=== PATIENT | female | born 1995 | race Caucasian/White ===

== ENCOUNTER 2017-08-26 19:23 | Emergency (ER) | payer BC ==
[~2017-08-26] VITALS: Ht 162.6 cm; Wt 49.9 kg
[2017-08-26] MEDS ORDERED: PANT40TA2 PO (21:27)
[2017-08-26] MEDS ORDERED: BC PILL (21:27)
[2017-08-26] MEDS ORDERED: METOCLOPRAMIDE HCL 10 MG/2 ML VIAL IV ONE (23:00)
[2017-08-26] MEDS ORDERED: IV NORMAL SALINE 1000 ML BAG IV ONE (23:00)
[2017-08-26] MEDS ORDERED: KETOROLAC TROMETHAMINE 15 MG INJ IV ONE (23:00)
[2017-08-26 23:20] LABS: BASOPHILS % (AUTO) 0.1 % (0.0-2.0); HEMATOCRIT 39.7 % (31.2-41.9); HEMOGLOBIN 13.5 g/dL (10.9-14.3); LYMPHOCYTES # (AUTO) 0.8 K/uL (20.0-40.0); LYMPHOCYTES % (AUTO) 10.8 % (20.5-74.5); MEAN CORPUSCULAR HEMOGLOBIN 29.5 uug (24.7-32.8); MEAN CORPUSCULAR HGB CONC 34 g/dL (32.3-35.6); MEAN CORPUSCULAR VOLUME 86.6 fL (75.5-95.3); MONOCYTES # (AUTO) 0.5 K/uL (2.0-10.0); MONOCYTES % (AUTO) 7.1 % (0-11); NEUTROPHILS # (AUTO) 6.3 K/uL (1.8-8.9); PLATELET COUNT (AUTO) 259 K/uL (179-408); RED BLOOD CELL COUNT(AUTO) 4.59 MIL/uL (3.63-4.92); WHITE BLOOD COUNT (AUTO) 7.7 K/uL (3.8-11.8)
[2017-08-26] MEDS ORDERED: METOCLOPRAMIDE HCL 10 MG/2 ML VIAL ONE (23:31)
[2017-08-26] MEDS ORDERED: KETOROLAC TROMETHAMINE 15 MG INJ ONE (23:31)
[2017-08-26 23:36] LABS: BILIRUBIN,DIRECT 0.1 mg/dL (0.0-0.2); BILIRUBIN,TOTAL 0.5 mg/dL (0.2-1.0); CREATININE 0.7 mg/dL (0.6-1.3); POTASSIUM 3.7 mmol/L (3.5-5.1); TOTAL PROTEIN, SERUM 8.5 g/dL (6.4-8.2)
[2017-08-27 00:39] LABS: *BILIRUBIN,URIN NEGATIVE (NEGATIVE); *BLOOD, URINE NEGATIVE (NEGATIVE); *CLARITY,URINE CLOUDY (CLEAR); *COLOR,URINE YELLOW (YELLOW); *KETONES,URINE 4+ (NEGATIVE); *PROTEIN,URINE 1+ (NEGATIVE); *UROBILINOGEN,URINE 0.2 E.U./dl (NORMAL); LEUKOCYTE ESTERASE ,URINE NEGATIVE (NEGATIVE); NITRITE, URINE NEGATIVE (NEGATIVE); PH,URINE 6.5 (5.0-8.0); UGLUCOSE NEGATIVE (NEGATIVE)
[2017-08-27 00:47] LABS: BACTERIA,URINE FEW /HPF (NONE SEEN); RBC,URINE 0-3 /HPF (0-3); SQUAMOUS EPITHELIAL CELL,UR MANY /HPF (NONE SEEN); WBC,URINE 0-3 /HPF (0-3)
[2017-08-27 00:48] LABS: MUCUS,URINE MODERATE /LPF (0-FEW); URINE AMORPHOUS URATE MANY /HPF
[2017-08-27] MEDS ORDERED: IV NORMAL SALINE 1000 ML BAG IV ONE (01:00)
--- NOTE | 2017-08-27 01:30 | NUR ---
patient states "I feel alot better now."
--- NOTE | 2017-08-27 01:39 | NUR ---
IV removed. Catheter intact and site benign. Pressure and 4x4 gauze applied to site. No bleeding noted.
--- NOTE | 2017-08-27 01:41 | NUR ---
Patient discharged to home in stable conditon with friends taking patient home. Written and verbal after care instructions given. Patient verbalizes understanding of instructions.
[2017-08-27 01:42] VITALS: BP 120/75
[2017-08-28] MEDS ORDERED: METO-295 PO (13:26)
== END 2017-08-27 01:42 | disposition home or self-care (01) ==
LOC: ER 19:25
DX: G43.A0 Cyclical vomiting, in migraine, not intractable (principal); E86.0 Dehydration
CPT/HCPCS: 36415; 70030-TC; 83690; 84703; 85025; 85730; A4663; J1885; J2765; J7030

== ENCOUNTER 2017-08-28 13:12 | Emergency (ER) | payer BC ==
[~2017-08-28] VITALS: Ht 162.6 cm; Wt 49.9 kg
[~2017-08-28 13:12] MED LIST: BC PILL; PANT40TA2 PO
[2017-08-28] MEDS ORDERED: METO-295 PO (13:26)
[2017-08-28] MEDS ORDERED: IV NORMAL SALINE 1000 ML BAG IV ONE (13:45)
[2017-08-28] MEDS ORDERED: ONDANSETRON 4 MG/2 ML VIAL IV ONE (13:45)
[2017-08-28] MEDS ORDERED: HYDROMORPHONE 1 MG/1 ML DISP.SYRIN IV ONE ×2 (13:45→16:00)
--- NOTE | 2017-08-28 13:47 | NUR ---
Pt initially denied abd pain but stated abd pain upon MSE.
[2017-08-28] MEDS ORDERED: ONDANSETRON 4 MG/2 ML VIAL ONE ×3 (13:57→16:27)
[2017-08-28] MEDS ORDERED: HYDROMORPHONE 4 MG/1 ML DISP.SYRIN ONE ×2 (13:58→16:21)
[2017-08-28] MEDS ORDERED: ONDANSETRON IV *ER 4 MG/2 ML VIAL IV ONE (16:00)
--- NOTE | 2017-08-28 16:45 | NUR ---
Patient discharged to home in stable conditon. Written and verbal after care instructions given. Patient verbalizes understanding of instructions.PT WALKS IN STEADY GAIT. PT CALLED FOR RIDE. PTNOT MALINI. PT SAYS FEELS BETTER. DENIES NAUSEA. PAIN DOWN TO TOLERABLE LEVLE.
[2017-08-28 16:54] VITALS: BP 111/79
== END 2017-08-28 16:57 | disposition home or self-care (01) ==
LOC: ER 13:15
DX: G43.A0 Cyclical vomiting, in migraine, not intractable (principal)
CPT/HCPCS: A4663; J1170; J2405; J7030

== ENCOUNTER 2017-09-01 10:45 | Inpatient (IN) | payer BC ==
[~2017-09-01] VITALS: Ht 162.6 cm; Wt 54.4 kg
[~2017-09-01 10:45] MED LIST changes: +METO-295 PO
--- NOTE | 2017-09-01 10:45 | NUR ---
Patient had one emesis of clear gastric contents. Comfort and safety measures initiated, pending available ER bed at this time.
[2017-09-01] MEDS ORDERED: IV NORMAL SALINE 500 ML BAG IV ONE (11:15)
[2017-09-01] MEDS ORDERED: MORPHINE SULFATE 2 MG/1 ML DISP.SYRIN IV ONE (11:22)
[2017-09-01] MEDS ORDERED: ONDANSETRON IV *ER 4 MG/2 ML VIAL IV ONE ×2 (11:30→13:45)
[2017-09-01] MEDS ORDERED: PANTOPRAZOLE SODIUM IV 40 MG in IV DEXTROSE 5% 100 ML IV ONE (11:30)
[2017-09-01] MEDS ORDERED: IV NS 1000 ML 1,000 ML IV ONE ×2 (11:30→14:30)
[2017-09-01 11:39] LABS: BASOPHILS % (AUTO) 0.3 % (0.0-2.0); EOSINOPHILS % (AUTO) 0.1 % (0.0-7.0); HEMATOCRIT 40.9 % (31.2-41.9); HEMOGLOBIN 13.6 g/dL (10.9-14.3); LYMPHOCYTES # (AUTO) 1.1 K/uL (20.0-40.0); LYMPHOCYTES % (AUTO) 13.3 % (20.5-74.5); MEAN CORPUSCULAR HEMOGLOBIN 29.1 uug (24.7-32.8); MEAN CORPUSCULAR HGB CONC 33 g/dL (32.3-35.6); MEAN CORPUSCULAR VOLUME 87.4 fL (75.5-95.3); MONOCYTES # (AUTO) 0.5 K/uL (2.0-10.0); MONOCYTES % (AUTO) 6.2 % (0-11); NEUTROPHILS # (AUTO) 6.8 K/uL (1.8-8.9); NEUTROPHILS % (AUTO) 80.1 % (31.5-64.5); PLATELET COUNT (AUTO) 248 K/uL (179-408); RED BLOOD CELL COUNT(AUTO) 4.68 MIL/uL (3.63-4.92); WHITE BLOOD COUNT (AUTO) 8.5 K/uL (3.8-11.8)
[2017-09-01 11:47] LABS: CREATININE 0.7 mg/dL (0.6-1.3); POTASSIUM 3.8 mmol/L (3.5-5.1)
[2017-09-01 11:53] LABS: BILIRUBIN,TOTAL 0.4 mg/dL (0.2-1.0); TOTAL PROTEIN, SERUM 7.5 g/dL (6.4-8.2)
[2017-09-01] MEDS ORDERED: PANTOPRAZOLE SODIUM 40 MG VIAL ONE (12:26)
[2017-09-01] MEDS ORDERED: ONDANSETRON 4 MG/2 ML VIAL ONE ×2 (12:26→13:37)
[2017-09-01] MEDS ORDERED: MORPHINE SULFATE 2 MG/1 ML DISP.SYRIN ONE (12:26)
--- NOTE | 2017-09-01 13:01 | NUR ---
Patient is seen walking to bathroom from room 1a, pending urine specimen
[2017-09-01 13:10] LABS: *BILIRUBIN,URIN NEGATIVE (NEGATIVE); *BLOOD, URINE Trace-lysed (NEGATIVE); *CLARITY,URINE CLOUDY (CLEAR); *COLOR,URINE YELLOW (YELLOW); *KETONES,URINE NEGATIVE (NEGATIVE); *PROTEIN,URINE NEGATIVE (NEGATIVE); *UROBILINOGEN,URINE 0.2 E.U./dl (NORMAL); LEUKOCYTE ESTERASE ,URINE TRACE (NEGATIVE); NITRITE, URINE NEGATIVE (NEGATIVE); UGLUCOSE NEGATIVE (NEGATIVE)
[2017-09-01 13:11] LABS: *URINE HCG, QUAL NEGATIVE (NEGATIVE)
[2017-09-01 13:13] LABS: BACTERIA,URINE NONE SEEN /HPF (NONE SEEN); RBC,URINE 0-3 /HPF (0-3); SQUAMOUS EPITHELIAL CELL,UR FEW /HPF (NONE SEEN)
--- NOTE | 2017-09-01 13:35 | NUR ---
Patient ambulated to bathroom 2x, no acute chnage in condition seen
--- NOTE | 2017-09-01 13:50 | NUR ---
NPO maintained, cooled oral lemon swabs provided.
--- NOTE | 2017-09-01 13:57 | NUR ---
Patient is resting comfortably on gurney with eyes close, respiration:easy, pending disposition
--- NOTE | 2017-09-01 14:10 | NUR ---
Patient ambulated to the bathroom to void, still for disposition.
[2017-09-01] MEDS ORDERED: HYDROMORPHONE 1 MG/1 ML DISP.SYRIN IV ONE (14:30)
--- NOTE | 2017-09-01 14:50 | NUR ---
NPO for now per MD, patient notified.
[2017-09-01] MEDS ORDERED: HYDROMORPHONE 2 MG/1 ML DISP.SYRIN ONE (14:52)
--- NOTE | 2017-09-01 14:59 | NUR ---
Patient is resting comfortably on gurney. PATIENT IS PAIN FREE AT THIS TIME. No vomiting seen since IV dilaudid was given.
--- NOTE | 2017-09-01 15:52 | NUR ---
Patient ambulated to the bathroom to void and patient said "Can I have another Dilaudid before going up to the floor?" MD notified. No vomiting episodes or dry heaving seen since IV dialudid was given to this patient.
[2017-09-01 18:00] VITALS: BP 139/92
--- NOTE | 2017-09-01 18:40 | NUR ---
DR GODWIN GAVE VERBAL INSTRUCTIONS TO GIVE ATIVAN FOR N/V. Addendum: 09/02/17 at 0455 by GERI VARGAS RN [address] GODWIN GAVE VERBAL INSTRUCTIONS TO GIVE ATIVAN FOR N/V. CHARTING IN ERROR
[2017-09-01] MEDS ORDERED: KETOROLAC TROMETHAMINE 15 MG INJ IVP PRN (18:45)
[2017-09-01] MEDS ORDERED: METOCLOPRAMIDE HCL 10 MG/2 ML VIAL IV PRN (18:45)
[2017-09-01] MEDS ORDERED: ACETAMINOPHEN 650 MG SUPP.RECT RC PRN (18:45)
[2017-09-01 19:00] VITALS: BP 118/83
--- NOTE | 2017-09-01 19:20 | NUR ---
DR GODWIN GAVE VERBAL INSTRUCTIONS TO GIVE ATIVAN FOR N/V
[2017-09-01] MEDS: LORAZEPAM 2 MG/1 ML VIAL IV PRN (19:26)
[2017-09-01] MEDS: POTASSIUM CHLORIDE 20 MEQ in IV D5 1/2 NS 1000 ML 1,000 ML IV PRN (19:36)
--- NOTE | 2017-09-01 19:36 | NUR ---
PATIENT WITH AN EPISODE OF CLEAR EMESIS, PRN MEDICATION GIVEN PER MD ORDERS. COMFORT MEASURES IN INITIATED, WILL CONTINUE TO MONITOR PATIENT
[2017-09-01] MEDS: FAMOTIDINE. 20 MG/2 ML VIAL IV SCH (21:52)
[2017-09-02] MEDS: LORAZEPAM 2 MG/1 ML VIAL IV PRN ×2 (01:38→08:55)
--- NOTE | 2017-09-02 02:30 | NUR ---
PATIENT ANXIOUS WITH ELEVATED BP 177/98. SHE HAD EMESIS X2 ATIVAN PRN GIVEN WITH NO EFFECT. ZOFRAN GIVEN AND WAS EFFECTIVE. PATIENT IS ASLEEP WITH NO SIGNS OR SYMPTOMS OF DISTRESS. BP DOWN TO 131/97, WILL CONTINUE TO MONITOR PATIENT
[2017-09-02] MEDS: ONDANSETRON 4 MG/2 ML VIAL IV PRN (02:33)
[2017-09-02 04:00] VITALS: BP 131/79
[2017-09-02 06:56] LABS: BILIRUBIN,TOTAL 0.4 mg/dL (0.2-1.0); CREATININE 0.6 mg/dL (0.6-1.3); MAGNESIUM 1.7 mg/dL (1.8-2.4); POTASSIUM 3.5 mmol/L (3.5-5.1); TOTAL PROTEIN, SERUM 6.8 g/dL (6.4-8.2)
[2017-09-02 07:10] LABS: BASOPHILS % (AUTO) 0.3 % (0.0-2.0); EOSINOPHILS % (AUTO) 0.2 % (0.0-7.0); HEMOGLOBIN 12.4 g/dL (10.9-14.3); LYMPHOCYTES # (AUTO) 1.4 K/uL (20.0-40.0); LYMPHOCYTES % (AUTO) 26.2 % (20.5-74.5); MEAN CORPUSCULAR HEMOGLOBIN 29.9 uug (24.7-32.8); MEAN CORPUSCULAR HGB CONC 34 g/dL (32.3-35.6); MEAN CORPUSCULAR VOLUME 87.6 fL (75.5-95.3); MONOCYTES # (AUTO) 0.6 K/uL (2.0-10.0); MONOCYTES % (AUTO) 12.3 % (0-11); NEUTROPHILS # (AUTO) 3.2 K/uL (1.8-8.9); PLATELET COUNT (AUTO) 210 K/uL (179-408); RED BLOOD CELL COUNT(AUTO) 4.13 MIL/uL (3.63-4.92)
[2017-09-02 07:23] LABS: WHITE BLOOD COUNT (AUTO) 5.3 K/uL (3.8-11.8)
[2017-09-02 07:24] LABS: HEMATOCRIT 36.2 % (31.2-41.9)
--- NOTE | 2017-09-02 07:35 | NUR ---
PT RECEIVED IN BED AWAKE .CALL LIGHT WITH IN REACH,NO C/O PAIN NOTED.
[2017-09-02] MEDS: POTASSIUM CHLORIDE 20 MEQ in IV D5 1/2 NS 1000 ML 1,000 ML IV PRN (07:54)
[2017-09-02] MEDS: FAMOTIDINE. 20 MG/2 ML VIAL IV SCH ×2 (08:14→23:35)
[2017-09-02] MEDS ORDERED: MAGNESIUM SULFATE/D5W 100 ML IV SCH (11:15)
[2017-09-02 11:35] VITALS: BP 93/57
[2017-09-02] MEDS ORDERED: MAGNESIUM SULFATE 1 GM in IV DEXTROSE 5% 50 ML IV ONE (12:30)
[2017-09-02 16:14] VITALS: BP 100/65
[2017-09-02] MEDS ORDERED: LORAZEPAM 0.5 MG TABLET PO PRN (18:00)
[2017-09-02 19:00] VITALS: BP 113/65
--- NOTE | 2017-09-02 19:30 | NUR ---
RECIEVED PATIENT A/O X 4 LAYING IN BED. PER ENDORSEMENT NO IV ACCESS POSSIBLE DISCHARGE HOME IF NAUSEATED FEELING IMPROVES PER REPORT. CALL LIGHT IS WITH REACH. NO EPISODES OF CARDIO PULMONARY DISTRESS ON DAY SHIFT OR EPISODES OF FALLS ON DAY SHIFT. PATIENT IS STABLE AT THIS POINT AND TIME. PER PATIENT FEELS A LITTLE NAUSEATED AND WOULD LIKE "PHENERGAM" WHICH HAS HELPED WITH NAUSEATED FEELING IN THE PAST. WILL CONTINUE TO MONITOR.
--- NOTE | 2017-09-02 21:45 | NUR ---
DR. GODWIN RETURNED CALL PER PATIENT'S REQUEST OF MEDICATION. NOTED FAMILY MEMBER AT BEDSIDE. PER PATIENT STILL IS FEELING NAUSEATED. NOTED NEW MEDICATION ORDER AND ACKNOWLEDGED. WILL CONTINUE TO MONITOR PATIENT ON SHIFT. CALL LIGHT WITH IN REACH. PATIENT AWARE TO MAKE NEEDS KNOW TO NURSE.
[2017-09-02] MEDS ORDERED: PROMETHAZINE HCL INJ 12.5 MG in IV DEXTROSE 5% 50 ML IV PRN (22:00)
--- NOTE | 2017-09-02 23:20 | NUR ---
ATTEMPTED TO START NEW I.V. PATIENT LOOKS TO BE A HARD STICK; REQUESTED CHARGE NURSE TO START I.V. FOR PERIPHERAL ACCESS FOR NEW MEDICATION ORDERED.
[2017-09-03] MEDS ORDERED: PROMETHAZINE HCL 25 MG/1 ML VIAL ONE (00:47)
[2017-09-03 04:00] VITALS: BP 92/53
[2017-09-03 07:33] LABS: BASOPHILS % (AUTO) 0.7 % (0.0-2.0); EOSINOPHILS % (AUTO) 0.8 % (0.0-7.0); HEMOGLOBIN 13.1 g/dL (10.9-14.3); LYMPHOCYTES # (AUTO) 3.2 K/uL (20.0-40.0); LYMPHOCYTES % (AUTO) 57.8 % (20.5-74.5); MEAN CORPUSCULAR HEMOGLOBIN 29.4 uug (24.7-32.8); MEAN CORPUSCULAR HGB CONC 34 g/dL (32.3-35.6); MEAN CORPUSCULAR VOLUME 87.7 fL (75.5-95.3); MONOCYTES # (AUTO) 0.7 K/uL (2.0-10.0); MONOCYTES % (AUTO) 11.9 % (0-11); NEUTROPHILS # (AUTO) 1.6 K/uL (1.8-8.9); NEUTROPHILS % (AUTO) 28.8 % (31.5-64.5); PLATELET COUNT (AUTO) 236 K/uL (179-408); RED BLOOD CELL COUNT(AUTO) 4.45 MIL/uL (3.63-4.92); WHITE BLOOD COUNT (AUTO) 5.6 K/uL (3.8-11.8)
[2017-09-03 07:47] LABS: BILIRUBIN,TOTAL 0.6 mg/dL (0.2-1.0); CREATININE 0.7 mg/dL (0.6-1.3); PHOSPHOROUS 4.1 mg/dL (2.5-4.9); POTASSIUM 3.9 mmol/L (3.5-5.1); TOTAL PROTEIN, SERUM 7.2 g/dL (6.4-8.2)
[2017-09-03] MEDS: FAMOTIDINE. 20 MG/2 ML VIAL IV SCH (08:54)
[2017-09-03 11:43] VITALS: BP 103/53
--- NOTE | 2017-09-03 12:55 | NUR ---
EKG DONE ORDERED PER DR. GODWIN; VS ARE STABLE 92/56, HR 81, SPO2 100% RA, RESP 20, 97.9, 3/10. CHEST PAIN WITH NO RADIATION FROM CHEST. CALL LIGHT WITH IN REACH. PLACED PATIENT ON O2 VIA O2 N.C. WILL CONTINUE TO MONITOR.
--- NOTE | 2017-09-03 13:00 | NUR ---
Received patient awake, alert x4. Still with chest pains rated as 3/10, non-radiating. No associated SOB. On O2 at 2lpm. No complaints of vomiting or nausea.
[2017-09-03] MEDS: ONDANSETRON 4 MG/2 ML VIAL IV PRN ×2 (15:32→16:05)
--- NOTE | 2017-09-03 15:32 | NUR ---
Patient nauseated. No vomiting noted. PRN Zofran given
[2017-09-03 15:46] VITALS: BP 101/63
[2017-09-03] MEDS ORDERED: PROM25TA15 PO (17:34)
--- NOTE | 2017-09-03 17:41 | NUR ---
With discharge order. Discharge to home. No episodes of vomiting during the shift. Denies chest pains or SOB.
--- NOTE | 2017-09-03 17:44 | NUR ---
Patient refuses vaccination. Encouraged to follow up with primary physician fir vaccination. Discussed risks and benefits but patient still refuses vaccination.
--- NOTE | 2017-09-03 18:25 | NUR ---
Discharge in stable condition, accompanied by Lebron Deng per wheelchair via private car. Vital signs stable. Instructed to take medications as prescribed. prescriptions given to patient. Instructed to have small resume diet gradually with small frequent feedings. Instructed to watch out for excessive vomiting, chest pains or SOB and find immediate medical care should symptoms recur. Instructed to follow up with PCP.
== END 2017-09-03 18:20 | disposition home or self-care (01) | DRG 392 ==
LOC: ER 10:46 → MED 16:51
PROVIDERS: ADMIT Internal Medicine; ATTEND Internal Medicine
DX: K31.89 Other diseases of stomach and duodenum (principal); E87.1 Hypo-osmolality and hyponatremia; F12.11 Cannabis abuse, in remission; R11.2 Nausea with vomiting, unspecified; K29.70 Gastritis, unspecified, without bleeding
CPT/HCPCS: 36415; 83690; 83735; 84100; 84703; 85025; 93005; A4663; C9113; J1170; J2060; J2270; J2405; J2550; J2765; J3475; J3480; J3490; J7030; J7060

== ENCOUNTER 2017-09-05 22:51 | Emergency (ER) | payer BC ==
[~2017-09-05] VITALS: Ht 154.9 cm; Wt 49.9 kg
[~2017-09-05 22:51] MED LIST changes: -METO-295 PO; +PROM25TA15 PO
--- NOTE | 2017-09-06 02:00 | NUR ---
Pt to room, c/o severe vomiting since yesterday from eating fast food for breakfast. Pt resting in position of comfort for self, awaiting further eval.
--- NOTE | 2017-09-06 03:53 | NUR ---
Dr. Hair at bedside for MSE
[2017-09-06] MEDS ORDERED: PROMETHAZINE HCL 25 MG/1 ML VIAL IM ONE (04:00)
[2017-09-06] MEDS ORDERED: IV NORMAL SALINE 1000 ML BAG IV ONE (04:00)
--- NOTE | 2017-09-06 04:15 | NUR ---
IV established, labs drawn and sent. Pt medicated for vomiting, will monitor for effects of medication. Fluid bolus infusing freely to gravity.
[2017-09-06] MEDS ORDERED: PROMETHAZINE HCL 25 MG/1 ML VIAL ONE (04:26)
[2017-09-06] MEDS ORDERED: KETAMINE HCL 500 MG/10 ML INJ IV ONE (04:45)
[2017-09-06 05:05] LABS: BASOPHILS % (AUTO) 0.1 % (0.0-2.0); EOSINOPHILS # (AUTO) 0.1 K/uL (0.0-0.7); EOSINOPHILS % (AUTO) 0.7 % (0.0-7.0); HEMATOCRIT 40.2 % (37-47); HEMOGLOBIN 13.2 G/DL (12.0-16.0); LYMPHOCYTES # (AUTO) 0.8 K/UL (0.8-4.8); LYMPHOCYTES % (AUTO) 10.3 % (20.5-74.5); MEAN CORPUSCULAR HEMOGLOBIN 28.5 UUG (27.0-31.0); MEAN CORPUSCULAR HGB CONC 33 g/dL (32.0-37.0); MEAN CORPUSCULAR VOLUME 86.7 FL (81.0-99.0); MONOCYTES # (AUTO) 0.3 K/UL (0.1-1.30); MONOCYTES % (AUTO) 3.5 % (0-11); NEUTROPHILS # (AUTO) 6.6 K/UL (1.8-8.9); NEUTROPHILS % (AUTO) 85.4 % (31.5-64.5); PLATELET COUNT (AUTO) 275 K/UL (150-450); RED BLOOD CELL COUNT(AUTO) 4.64 MIL/UL (4.2-5.4); WHITE BLOOD COUNT (AUTO) 7.8 K/UL (4.0-11.2)
[2017-09-06 05:21] LABS: BILIRUBIN,DIRECT 0.1 mg/dL (0.0-0.2); BILIRUBIN,TOTAL 0.4 mg/dL (0.2-1.0); CREATININE 0.7 mg/dL (0.6-1.3); POTASSIUM 3.5 mmol/L (3.5-5.1); TOTAL PROTEIN, SERUM 8.1 g/dL (6.4-8.2)
[2017-09-06] MEDS ORDERED: KETAMINE HCL 500 MG/10 ML INJ ONE (05:53)
--- NOTE | 2017-09-06 07:23 | NUR ---
Report given to JESSICA Maria. I relinquish care of pt at this time
--- NOTE | 2017-09-06 07:50 | NUR ---
Carolina carlin in [facility] - 09/06/17 at 0750 by MARCO SBAR report given to Ye LOPEZ via telephone.
--- NOTE | 2017-09-06 07:59 | NUR ---
Patient discharged to home in stable conditon. Written and verbal after care instructions given. Patient verbalizes understanding of instructions.pt says feels better, deneis any nausea, or dizziness. pt going home with benito.
[2017-09-06 08:00] VITALS: BP 113/61
== END 2017-09-06 08:05 | disposition home or self-care (01) ==
LOC: ER 22:52
DX: G43.A0 Cyclical vomiting, in migraine, not intractable (principal)
CPT/HCPCS: 36415; 80048; 80076; 83690; 84703; 85025; 96361; 96372; 96374; 99284; A4663; J2550; J3490; J7030 ×2

== ENCOUNTER 2018-11-19 14:34 | Emergency (ER) | payer BC ==
[~2018-11-19] VITALS: Ht 162.6 cm; Wt 49.9 kg
[2018-11-19] MEDS ORDERED: ONDANSETRON IV *ER 4 MG/2 ML VIAL IV ONE ×2 (14:45→15:30)
[2018-11-19] MEDS ORDERED: IV NORMAL SALINE 1000 ML BAG IV ONE (14:45)
--- NOTE | 2018-11-19 14:50 | NUR ---
PT IS IN ROOM #2B. DR SOLORIO EVALUATED THE PT.
[2018-11-19] MEDS ORDERED: ONDANSETRON 4 MG/2 ML VIAL ONE ×2 (14:55→16:02)
[2018-11-19 15:06] LABS: BASOPHILS % (AUTO) 0.2 % (0.0-2.0); HEMATOCRIT 42.3 % (31.2-41.9); HEMOGLOBIN 14.2 g/dL (10.9-14.3); LYMPHOCYTES # (AUTO) 1.1 K/uL (20.0-40.0); LYMPHOCYTES % (AUTO) 16.2 % (20.5-51.5); MEAN CORPUSCULAR HEMOGLOBIN 29.7 uug (24.7-32.8); MEAN CORPUSCULAR HGB CONC 34 g/dL (32.3-35.6); MEAN CORPUSCULAR VOLUME 88.5 fL (75.5-95.3); MONOCYTES # (AUTO) 0.8 K/uL (2.0-10.0); MONOCYTES % (AUTO) 12.1 % (0.0-11.0); NEUTROPHILS # (AUTO) 4.7 K/uL (1.8-8.9); NEUTROPHILS % (AUTO) 71.5 % (38.5-71.5); PLATELET COUNT (AUTO) 274 K/uL (179-408); RED BLOOD CELL COUNT(AUTO) 4.79 MIL/uL (3.63-4.92); WHITE BLOOD COUNT (AUTO) 6.6 K/uL (3.8-11.8)
[2018-11-19 15:14] LABS: CREATININE 0.7 mg/dL (0.6-1.3); POTASSIUM 3.9 mmol/L (3.5-5.1)
[2018-11-19 15:19] LABS: BILIRUBIN,DIRECT 0.1 mg/dL (0.0-0.2); BILIRUBIN,TOTAL 0.3 mg/dL (0.2-1.0)
[2018-11-19] MEDS ORDERED: HYDROMORPHONE 1 MG/1 ML DISP.SYRIN IV ONE (15:30)
[2018-11-19] MEDS ORDERED: HYDROMORPHONE 1 MG/1 ML DISP.SYRIN ONE (16:02)
--- NOTE | 2018-11-19 18:58 | NUR ---
PT WAS D/C'D TO HOME. D/C INSTRUCTIONS GIVEN TO THE PT.
[2018-11-19 18:59] VITALS: BP 123/69
== END 2018-11-19 19:00 | disposition home or self-care (01) ==
LOC: ER 14:34
DX: G43.A0 Cyclical vomiting, in migraine, not intractable (principal); Z79.899 Other long term (current) drug therapy
CPT/HCPCS: 36415; 80048; 80076; 83690; 85025; 96361; 96374; 96375; 96376; 99283; J1170; J2405 ×2; A4663; J7030

== ENCOUNTER 2018-11-20 11:34 | Emergency (ER) | payer BC ==
[~2018-11-20] VITALS: Ht 162.6 cm; Wt 49.9 kg
--- NOTE | 2018-11-20 11:45 | NUR ---
Dr Sanchez at the bedside for MSE.
[2018-11-20] MEDS ORDERED: IV NORMAL SALINE 1000 ML BAG IV ONE (12:00)
[2018-11-20] MEDS ORDERED: ONDANSETRON 4 MG/2 ML VIAL IV ONE (12:00)
[2018-11-20] MEDS ORDERED: ONDANSETRON 4 MG/2 ML VIAL ONE (12:00)
[2018-11-20 12:04] LABS: BASOPHILS % (AUTO) 0.2 % (0.0-2.0); EOSINOPHILS % (AUTO) 0.1 % (0.0-7.0); HEMATOCRIT 37.7 % (31.2-41.9); HEMOGLOBIN 12.8 g/dL (10.9-14.3); LYMPHOCYTES # (AUTO) 1.4 K/uL (20.0-40.0); LYMPHOCYTES % (AUTO) 27.1 % (20.5-51.5); MEAN CORPUSCULAR HEMOGLOBIN 29.8 uug (24.7-32.8); MEAN CORPUSCULAR HGB CONC 34 g/dL (32.3-35.6); MEAN CORPUSCULAR VOLUME 87.5 fL (75.5-95.3); MONOCYTES # (AUTO) 0.6 K/uL (2.0-10.0); MONOCYTES % (AUTO) 11.9 % (0.0-11.0); NEUTROPHILS # (AUTO) 3.1 K/uL (1.8-8.9); NEUTROPHILS % (AUTO) 60.7 % (38.5-71.5); PLATELET COUNT (AUTO) 232 K/uL (179-408)
[2018-11-20 12:16] LABS: ALANINE AMINOTRANSFERASE 22 U/L (14-59); ALKALINE PHOSPHATASE 63 U/L (50-136); ASPARTATE AMINOTRANSFERASE 19 U/L (15-37); BILIRUBIN,DIRECT 0.1 mg/dL (0.0-0.2); BILIRUBIN,TOTAL 0.3 mg/dL (0.2-1.0); CARBON DIOXIDE 25 mmol/L (21-32); CHLORIDE 100 mmol/L (98-107); CREATININE 0.5 mg/dL (0.6-1.3); GLUCOSE 116 mg/dL (74-106); LIPASE 133 U/L (73-393); POTASSIUM 3.7 mmol/L (3.5-5.1); TOTAL PROTEIN, SERUM 7.3 g/dL (6.4-8.2); UREA NITROGEN, BLOOD 6 mg/dL (7-18)
--- NOTE | 2018-11-20 12:31 | NUR ---
Patient is resting comfortably in bed with eyes closed, NAD noted.
[2018-11-20 12:59] LABS: *BILIRUBIN,URIN NEGATIVE (NEGATIVE); *BLOOD, URINE NEGATIVE (NEGATIVE); *CLARITY,URINE CLOUDY (CLEAR); *COLOR,URINE LIGHT YELLOW (YELLOW); *KETONES,URINE NEGATIVE (NEGATIVE); *UROBILINOGEN,URINE 0.2 E.U./dl (NORMAL); LEUKOCYTE ESTERASE ,URINE NEGATIVE (NEGATIVE); NITRITE, URINE NEGATIVE (NEGATIVE); PH,URINE 8.5 (5.0-8.0); UGLUCOSE NEGATIVE (NEGATIVE)
[2018-11-20 13:02] LABS: *URINE HCG, QUAL NEGATIVE (NEGATIVE)
[2018-11-20 13:06] LABS: BACTERIA,URINE FEW /HPF (NONE SEEN); RBC,URINE NONE SEEN /HPF (0-3); SQUAMOUS EPITHELIAL CELL,UR FEW /HPF (NONE SEEN); URINE AMORPHOUS PHOSPHATES FEW /HPF; WBC,URINE 0-3 /HPF (0-3)
[2018-11-20] MEDS ORDERED: FAMOTIDINE. 20 MG/2 ML VIAL IV ONE ×2 (13:15→13:17)
[2018-11-20] MEDS ORDERED: METOCLOPRAMIDE HCL 10 MG/2 ML VIAL ONE (13:21)
[2018-11-20 13:27] VITALS: BP 122/71
--- NOTE | 2018-11-20 13:27 | NUR ---
IV removed. Catheter intact and site benign. Pressure and 4x4 gauze applied to site. No bleeding noted.
--- NOTE | 2018-11-20 13:28 | NUR ---
Patient discharged to home in stable conditon. Written and verbal after care instructions given. Patient verbalizes understanding of instructions.
[2018-11-20] MEDS ORDERED: METOCLOPRAMIDE HCL 10 MG/2 ML VIAL IV ONE (13:30)
== END 2018-11-20 13:29 | disposition home or self-care (01) ==
LOC: ER 11:34
DX: G43.A0 Cyclical vomiting, in migraine, not intractable (principal); Z79.899 Other long term (current) drug therapy
CPT/HCPCS: 36415; 80048; 80076; 81001; 83690; 84703; 85025; 96361; 96374; 96375; 99283; J2405; J2765; J3490; A4663; J7030